=== PATIENT | female | born 1995 | race Two or more races ===

== ENCOUNTER 2019-04-03 17:26 | Emergency (ER) | payer MEDICAID, OTHER ==
[~2019-04-03] VITALS: Ht 175.3 cm; Wt 89.8 kg
[2019-04-03 17:33] VITALS: BP 119/87
== END 2019-04-03 20:02 | disposition home or self-care (01) ==
LOC: ER 17:26 → EDBD 17:26 → ER 20:02
DX: M62.838 Other muscle spasm (principal); M54.2 Cervicalgia; R51 Headache; V43.62XA Car passenger injured in collision with other type car in traffic accident, initial encounter; Y93.89 Activity, other specified; Y92.488 Other paved roadways as the place of occurrence of the external cause; Y99.8 Other external cause status